=== PATIENT | female | born 2005 | race Caucasian/White ===

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

== ENCOUNTER 2024-05-23 14:32 | Emergency (ER) | payer OTHER, SELFPAY ==
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
[2024-05-23 14:43] VITALS: BP 107/81; PULSE 111; RESP 18; TEMP 36.7; O2SAT 100
== END 2024-05-23 15:20 | disposition home or self-care (01) ==
PROVIDERS: Emergency Provider Nurse Practitioner Family; PCP Clinical Nurse Specialist
DX: S93.602A Unspecified sprain of left foot, initial encounter (principal); S93.402A Sprain of unspecified ligament of left ankle, initial encounter; V29.99XA Rider (driver) (passenger) of other motorcycle injured in unspecified traffic accident, initial encounter; N80.9 Endometriosis, unspecified
CPT/HCPCS: 73610; 73630; 99213; G0463

== ENCOUNTER 2024-09-30 10:37 | Emergency (ER) | payer SELFPAY ==
[2024-09-30 10:45] VITALS: BP 118/76; PULSE 82; RESP 16; TEMP 36.2; O2SAT 100
--- NOTE | 2024-09-30 11:37 | ED.GENADULT ---
HPI - General Adult General Chief complaint: Skin/Abscess/Foreign Body Stated complaint: INFECTED TATTOO Source: patient Mode of arrival: ambulatory Limitations: no limitations History of Present Illness HPI narrative: Patient presents for evaluation of redness and drainage from her left upper extremity. She had a tattoo placed on Tuesday of last week. She noticed her symptoms the same day. She had similar reactions in the past with tattoo placement on two separate occasions. She has not been taking medications for her symptoms. Date of last tetanus unknown. She is not diabetic. She reports recent fever and chills which have since resolved. Related Data Allergies Allergy/AdvReac Type Severity Reaction Status Date / Time No Known Allergies Allergy Verified 09/30/24 11:05 Review of Systems Review of Systems: CONSTITUTIONAL: Denies fever, chills, or sweats. EYES: Denies visual changes, redness, or discharge. ENT: Denies rhinorrhea, congestion, sore throat, or otalgia. CARDIOVASCULAR: Denies chest pain, palpitations, or edema. RESPIRATORY: Denies cough or dyspnea. GASTROINTESTINAL: Denies abdominal pain, nausea, vomiting, or diarrhea. GENITOURINARY: Denies dysuria or hematuria. SKIN: reports redness and drainage from the left arm MUSCULOSKELETAL: Denies back pain, joint pain, or myalgia. NEUROLOGIC: Denies headache, numbness, dizziness, or weakness. PSYCHIATRIC: Denies anxiety or depression. [facility] Past Medical History Medical History Status post elective Elective G1 medical G2 surgical -current Endometriosis Vaginal bleeding Retained products of conception Vaginal odor Contraceptive management H/O Sinusitis Suppression of menstruation PMS (premenstrual syndrome) Menorrhagia Dysmenorrhea PMS (premenstrual syndrome) Menorrhagia Dysmenorrhea PMS (premenstrual syndrome) Menorrhagia Dysmenorrhea Anxiety PMS (premenstrual syndrome) Menorrhagia Dysmenorrhea Migraines Endometriosis Hx of medication but no surgery Inflammatory bowel syndrome Surgical History Surgical History H/O dilation and curettage X2 History of tonsillectomy Family History Family History Mother Alcoholism Depression Grandparent Diabetes mellitus Hypertension Heart disease Father Asthma Sibling Asthma Grandparent Diabetes mellitus Grandparent Diabetes mellitus Hypertension Grandparent Hypertension Social History Social History Social History: Caffeine: 1 soda daily Smoking status: Current every day smoker Tobacco type: e-cigarettes/vaping Alcohol intake: current Alcohol use details: Rarely Substance use: current Substance use type: marijuana Other substance usage details: CBD Last use: 02/16/23 Do You Feel Safe in your Home?: Yes Lack of Transportation: No Lack of Food: Never True Current Housing: I Have Housing Concerned About Future Housing: No Difficulty Paying Gas/Electric Bills: No Difficulty Paying for Meds: No Currently Unemployed: No Education: High School Diploma/GED Difficulty w/ Childcare or Family Care: No Living arrangements: with family Additional living arrangements comments: father Occupation/Education: occupation 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 HEAD: Normocephalic, atraumatic. EYES: PERRLA and EOMI. ENT: Nares clear, no rhinorrhea or epistaxis. Mucous membranes moist. Oropharynx without tonsillar hypertrophy exudate or other lesions. Bilateral TMs pearly flores nonbulging NECK: Supple. No adenopathy or masses. No carotid bruits or JVD CHEST: Clear to auscultation. No respiratory distress. No wheezes rales or rhonchi HEART: Regular rate and rhythm. No murmur heard. Normal peripheral pulses. ABDOMEN: Soft, nontender, nondistended, normal active bowel sounds. EXTREMITIES: Normal range of motion. No edema. SKIN: there is some erythema and a scant amount of green drainage from skin in the area of the left and left shoulder. There is a fresh appearing tattoo in the LUE in the site of concern NEURO: No focal deficits. Alert and oriented x3. PSYCH: Normal mood and affect. Course Course Emergency Course: this is a 19-year-old female who presented for evaluation of redness and drainage from left arm. Wound cultures obtained. Start Bactrim and Keflex. Updated on tetanus. Follow-up with primary provider. Go to the ER for worsening symptoms. Patient in agreement with plan of care. Level of Care: Express Care Visit Vital Signs Vital signs: Vital Signs Temperature 36.2 C L 09/30/24 10:45 Pulse Rate 82 09/30/24 10:45 Respiratory Rate 16 09/30/24 10:45 Blood Pressure 118/76 09/30/24 10:45 Pulse Oximetry 100 09/30/24 10:45 Temperature 36.2 C L 09/30/24 10:45 Pulse Rate 82 09/30/24 10:45 Respiratory Rate 16 09/30/24 10:45 Blood Pressure 118/76 09/30/24 10:45 Pulse Oximetry 100 09/30/24 10:45 Medical Decision Making Vital Signs Vital Signs: Vital Signs Temperature 36.2 C L 09/30/24 10:45 Pulse Rate 82 09/30/24 10:45 Respiratory Rate 16 09/30/24 10:45 Blood Pressure 118/76 09/30/24 10:45 Pulse Oximetry 100 09/30/24 10:45 Temperature 36.2 C L 09/30/24 10:45 Pulse Rate 82 09/30/24 10:45 Respiratory Rate 16 09/30/24 10:45 Blood Pressure 118/76 09/30/24 10:45 Pulse Oximetry 100 09/30/24 10:45 Discharge Plan Discharge Clinical Impression: Tattoo reaction Patient Disposition: Home Condition: Stable Instructions: Antibiotic Form, Cellulitis (ED), Acute Wounds (ED) Patient Language: Syrian Prescriptions: New sulfamethoxazole-trimethoprim [Bactrim DS] 800-160 mg tablet 1 tablet PO Q12H Qty: 20 0RF cephalexin 500 mg capsule 500 mg PO Q6H 10 Days Qty: 40 0RF Follow-up/Referrals: Patricia Hernandez FNP-C [Primary Care Provider, Internal Medicine] Time of Disposition: 11:37
[2024-09-30] MEDS: TETANUS,DIPHTHERIA,AC PERTUSSIS ADULT (0.5 ML) BOOSTRIX IM (11:41)
== END 2024-09-30 11:46 | disposition home or self-care (01) ==
PROVIDERS: Emergency Provider Nurse Practitioner; PCP Clinical Nurse Specialist
DX: L81.8 Other specified disorders of pigmentation (principal); F17.290 Nicotine dependence, other tobacco product, uncomplicated; N80.9 Endometriosis, unspecified
CPT/HCPCS: 90471; 90715; 99213; G0463